=== PATIENT | female | born 1965 | race Caucasian/White ===

== ENCOUNTER → 2018-07-02 10:44 | Outpatient (CLI) | payer OTHER, SELFPAY ==
--- NOTE | 2018-07-02 10:49 | MM_ITS ---
MM Dig screening mamm BI w/CAD ORDERING PHYSICIAN : Bhupinedr Mann MD PATIENT AGE: 52 years GENDER: Female COMPARISON: Prior outside studies from [facility] [place]: December 2014, October 2013 INDICATION: ITS.REASON: SCREENING no hormones currently. No new complaints Patient has had lumpectomy right breast with radiation. Scar superior retroareolar region and right axilla noted on history sheet Family history. Maternal and paternal great aunts with breast cancer TECHNIQUE: Standard CC and MLO images were obtained. R2 CAD reviewed. Additional axillary cc view both breast FINDINGS: Moderate Residual fibroglandular elements in both breast.. Prior films are helpful and reflect stability RIGHT BREAST:No new areas of concern Prominent architectural distortion a due to the lumpectomy/radiation changes. Deep appearing scar. Dense benign-appearing Calcifications at the depths of the scar likely reflecting fat necrosis appears stable. No new areas of concern. Follow-up in one year recommended LEFT BREAST:. No new areas of concern Moderate residual fibrolinear elements most evident towards upper-outer quadrant and overall appear stable when all 3 views evaluate IMPRESSION: No significant new findings. Bilateral follow-up in one year recommended. Lumpectomy/radiation changes the right breast with prominent scarring.. No significant change since prior studies BI-RADS Category: 2 Benign Finding(s) RECOMMENDED FOLLOW-UP: 1YR 1 YEAR FOLLOW-UP (A letter has been sent to the patient regarding results of the study.)
== END ==
PROVIDERS: Visit Provider Internal Medicine
DX: Z12.31 Encounter for screening mammogram for malignant neoplasm of breast (principal)
CPT/HCPCS: 77067

== ENCOUNTER → 2018-07-12 14:16 | Outpatient (CLI) | payer OTHER, SELFPAY ==
--- NOTE | 2018-07-12 14:22 | XR_ITS ---
XR chest 2V HISTORY: ITS.REASON: BREAST CANCER ORDERING PHYSICIAN: Cate Gonzales MD PATIENT AGE: 52 years COMPARISON: None available FINDINGS: The cardiomediastinal silhouette and pulmonary vascularity are within normal limits. The lungs are clear without infiltrates, suspicious nodules, or pleural effusions. No acute bony abnormalities. There are surgical clips projecting over the right hemidiaphragm on the PA projection likely within the right breast. IMPRESSION: Negative chest, no acute finding
== END ==
PROVIDERS: PCP Internal Medicine Adolescent Medicine; Visit Provider Internal Medicine Medical Oncology
DX: C50.911 Malignant neoplasm of unspecified site of right female breast (principal)
CPT/HCPCS: 71046

== ENCOUNTER → 2018-10-13 08:13 | Outpatient (CLI) | payer OTHER, SELFPAY ==
[2018-10-13 10:20] LABS: Alanine Aminotransferase 34 U/L (12-78); Albumin/Globulin Ratio 1.2 (1.1-1.8); Alkaline Phosphatase 94 U/L (46-116); Anion Gap 13.5 mEq/L (5-15); Aspartate Amino Transferase 26 U/L (15-37); Bilirubin,Total 0.4 mg/dL (0.2-1.0); Blood Urea Nitrogen 15 mg/dL (7-18); Calcium 9.3 mg/dL (8.5-10.1); Carbon Dioxide 28 mmol/L (21.0-32.0); Chloride 105 mmol/L (98-107); Chol/HDL Ratio 2.3 (1-3.5); Cholesterol 163 mg/dL (140-200); Creatinine,Serum 0.89 mg/dL (0.55-1.02); Estimated Glomerular Filt Rate 66 ml/min (>60); GFR (African American) 80 ML/MIN (>60); Globulin 3.3 gm/dl (1.3-3.2); Glucose 100 mg/dL (74-106); HDL Cholesterol 70 mg/dL (29-89); LDL Cholesterol 73 mg/dL (0-130); Potassium 4.5 mmoL/L (3.5-5.1); Sodium 142 mmol/L (136-145); Total Protein,Serum 7.3 gm/dL (6.4-8.2); Triglycerides 99 mg/dL (30-200); VLDL Cholesterol 20 mg/dL (0-40)
== END ==
PROVIDERS: Visit Provider Internal Medicine Adolescent Medicine
DX: E78.5 Hyperlipidemia, unspecified (principal)
CPT/HCPCS: 36415; 80053; 80061